=== PATIENT | male | born 1990 | race Hispanic/Latino ===

== ENCOUNTER 2017-08-06 15:01 | Outpatient (CLI) | payer BC ==
--- NOTE | 2017-08-06 16:11 | RAD ---
LEFT KNEE 2 VIEWS: Date: 08/06/17 HISTORY: Injury to left knee, left knee pain. FINDINGS/IMPRESSION: No acute fracture or dislocation is identified. POS: [facility]
== END 2017-08-06 15:02 | disposition home or self-care (01) ==
LOC: NAV RAD 15:01
PROVIDERS: ATTEND Nurse Practitioner Family
DX: S89.92XA Unspecified injury of left lower leg, initial encounter (principal)

== ENCOUNTER 2018-03-19 09:54 | Outpatient (CLI) | payer BC ==
--- NOTE | 2018-03-19 11:25 | RAD ---
LEFT KNEE 4 VIEWS: HISTORY: A 27-year-old male with left knee acute pain. COMPARISON: 08/06/17. FINDINGS AND IMPRESSION: No fracture, dislocation, or other significant acute osseous abnormality. No mass or midline shift. No intra- or extraaxial hemorrhage. POS: [facility]
== END 2018-03-19 09:55 | disposition home or self-care (01) ==
LOC: NAV RAD 09:54
PROVIDERS: ATTEND Nurse Practitioner Family
DX: M25.562 Pain in left knee (principal)

== ENCOUNTER 2021-01-26 22:32 | Emergency (ER) | payer BC ==
[2021-01-26] MEDS ORDERED: Bacitracin 1 PK ONE (22:46)
[2021-01-26] MEDS ORDERED: Lidocaine 1% (PF) 30 ML VIAL ONE (22:46)
[2021-01-26] MEDS ORDERED: Boostrix 0.5 ML (Tdap) VIAL ONE (22:50)
== END 2021-01-26 23:58 | disposition home or self-care (01) ==
LOC: NAV ERS 22:32
DX: S61.217A Laceration without foreign body of left little finger without damage to nail, initial encounter (principal); W26.0XXA Contact with knife, initial encounter
CPT/HCPCS: 12001; 90471; 90715; J2001